=== PATIENT | male | born 1955 ===

== ENCOUNTER → 2017-05-09 | Emergency (ER) | payer OTHER ==
[~2017-05-09] VITALS: Ht 182.9 cm; Wt 98.0 kg
[~2017-05-09] MED LIST: GILTUSS TR TAB1 EACH PO; HYZAAR 100-251 EACH PO; HYZAAR 100/25 T1 TAB; HYZAAR 100/25 T1 TAB PO; METFORMIN HCL500 MG PO; METOPROLOL SUC100 MG PO; METROPOLOL PO; NORVASC10 MG; NORVASC10 MG PO; SIMVASTATIN40 MG; SIMVASTATIN40 MG PO; SYNTHROID137 MCG; SYNTHROID150 MCG; SYNTHROID150 MCG PO; VOLTAREM 50 MG PO; ZANTAC300 MG PO; ZOCOR40 MG PO; ZYRTEC10 MG PO; [UNRECOGNIZED DRUG - OTHER] PO
== END | disposition home or self-care (01) ==
LOC: ER 08:13
DX: S30.0XXA Contusion of lower back and pelvis, initial encounter (principal); W18.39XA Other fall on same level, initial encounter; Y93.89 Activity, other specified; Y92.89 Other specified places as the place of occurrence of the external cause; Y99.8 Other external cause status

== ENCOUNTER → 2017-07-11 | Outpatient (CLI) | payer OTHER | END | disposition home or self-care (01) | LOC: PPHC 15:43 | DX: Z00.00 Encounter for general adult medical examination without abnormal findings (principal) ==

== ENCOUNTER 2017-07-13 08:38 | Outpatient (CLI) | payer OTHER | END 2017-07-13 08:42 | disposition home or self-care (01) | LOC: LAB 08:38 | DX: I10 Essential (primary) hypertension (principal); E78.5 Hyperlipidemia, unspecified; N40.0 Benign prostatic hyperplasia without lower urinary tract symptoms ==

== ENCOUNTER 2019-01-30 09:39 | Emergency (ER) | payer OTHER ==
[~2019-01-30] VITALS: Ht 180.3 cm; Wt 98.0 kg
== END 2019-01-30 11:19 | disposition home or self-care (01) ==
LOC: ER 09:39
DX: R60.0 Localized edema (principal); T46.6X5A Adverse effect of antihyperlipidemic and antiarteriosclerotic drugs, initial encounter; Y92.89 Other specified places as the place of occurrence of the external cause